=== PATIENT | male | born 1995 | race American Indian/Alaskan Native ===

== ENCOUNTER 2017-07-01 20:02 | Emergency (ER) | payer SELFPAY ==
[2017-07-01 20:09] VITALS: BMI 21.9
[2017-07-01 20:11] VITALS: BP 135/65; PULSE 81; RESP 18; TEMP 99.4; O2SAT 98
--- NOTE | 2017-07-01 20:35 | ED PDOC ---
Lower Extremity Pain/Injury Time Seen by Provider: 07/01/17 20:07 Chief Complaint (Nursing): Lower Extremity Problem/Injury Chief Complaint (Provider): Right medial knee pain s/p fall History Per: Patient History/Exam Limitations: no limitations Onset/Duration Of Symptoms: Mins Current Symptoms Are (Timing): Still Present Severity: Moderate Pain Scale Rating Of: 6 Additional Complaint(s): Pt wsa playing basketball when he fell landing on the right knee. Pt states he hit the inside of his knee against the ground. Past Medical History Reviewed: Historical Data, Nursing Documentation, Vital Signs Vital Signs: Last Vital Signs Temp 99.4 F 07/01/17 20:09 Pulse 81 07/01/17 20:09 Resp 18 07/01/17 20:09 BP 135/65 07/01/17 20:09 Pulse Ox 98 07/01/17 20:09 - Medical History PMH: No Chronic Diseases - Surgical History Surgical History: No Surg Hx - Family History Family History: States: No Known Family Hx - Living Arrangements Living Arrangements: With Family - Social History Current smoker - smoking cessation education provided: No Alcohol: None - Allergies Allergies/Adverse Reactions: Allergies Allergy/AdvReac Type Severity Reaction Status Date / Time No Known Allergies Allergy Verified 07/01/17 20:09 Review of Systems ROS Statement: Except As Marked, All Systems Reviewed And Found Negative Constitutional: Negative for: Fever, Chills Musculoskeletal: Positive for: Leg Pain Skin: Negative for: Bruising Physical Exam - Reviewed Nursing Documentation Reviewed: Yes Vital Signs Reviewed: Yes - Physical Exam Appears: Positive for: Well, Non-toxic, No Acute Distress Head Exam: Positive for: ATRAUMATIC, NORMAL INSPECTION, NORMOCEPHALIC Skin: Positive for: Normal Color (No erythema or ecchymosis of the right knee ) , Warm Eye Exam: Positive for: Normal appearance ENT: Positive for: Normal ENT Inspection Neck: Positive for: Normal, Painless ROM Back: Positive for: Normal Inspection Extremity: Positive for: Normal ROM, Tenderness (Medial right knee ). Negative for: Deformity, Swelling Neurologic/Psych: Positive for: Alert, Oriented - ECG O2 Sat by Pulse Oximetry: 98 Medical Decision Making Medical Decision Making: Motrin given in ER. Knee x-ray normal. Disposition - Clinical Impression Clinical Impression: Knee injury - Patient ED Disposition Is Patient to be Admitted: No Counseled Patient/Family Regarding: Diagnosis, Need For Followup - Disposition Disposition: Routine/Home Disposition Time: 20:35 Condition: GOOD Additional Instructions: Ice, elevation, motrin for pain. Instructions: Knee Immobilizer (ED)
--- NOTE | 2017-07-02 09:39 | RAD ---
PROCEDURE: Right Knee Radiographs. HISTORY: knee pain, fell onto knee COMPARISON: None. FINDINGS: BONES: No acute fracture or destructive bony lesion identified. JOINTS: Normal. No osteoarthritis. JOINT EFFUSION: None. OTHER FINDINGS: None. IMPRESSION: Normal radiographs of the right knee.
== END 2017-07-01 20:59 | disposition home or self-care (01) ==
LOC: H.ER 20:02
DX: S89.91XA Unspecified injury of right lower leg, initial encounter (principal); W19.XXXA Unspecified fall, initial encounter; Y92.310 Basketball court as the place of occurrence of the external cause